=== PATIENT | female | born 1955 | race Caucasian/White ===

== ENCOUNTER 2019-10-12 13:47 | Emergency (ER) | payer OTHER ==
[~2019-10-12] VITALS: Ht 160 cm; Wt 77.1 kg
[2019-10-12 13:55] VITALS: BP_SYST 130
[2019-10-12 15:05] VITALS: BP_SYST 130
== END 2019-10-12 15:05 | disposition home or self-care (01) ==
LOC: SED 13:47
DX: H43.392 Other vitreous opacities, left eye (principal); I10 Essential (primary) hypertension
CPT/HCPCS: 99281